=== PATIENT | female | born 1975 | race Caucasian/White ===

== ENCOUNTER 2017-04-11 14:30 | Emergency (ER) | payer OTHER ==
--- NOTE | ~2017-04-11 | US84 ---
[id number] [address] [address] [id number] MR#: [id number] Acc #: [id number] NAME: GENE CHIRINOS : 1975 SEX: F STUDY DATE/TIME: 04/11/2017 15:47 UNIT: SED ROOM: STUDY DESCRIPTION: US LE Veins Complete Cristobal Stdy Attending Physician: Tj Villanueva M.D. Ordering Physician: Tj Villanueva M.D. Primary Care Physician: Primary Care Physician No MEDICAL IMAGING REPORT This report is preliminary unless electronic signature is present. EXAM Bilateral lower extremity Doppler venous ultrasound. DATE: 04/11/2017 HISTORY Bilateral lower extremity swelling for 3 months, sharp pain in the back of the calves for 1-2 weeks. TECHNIQUE Venous ultrasound examination of both lower extremities was performed using grayscale, spectral Doppler and color flow Doppler imaging. FINDINGS The examination is negative. There is no evidence of deep venous thrombus from the groin to the lower calf bilaterally. Visualized greater saphenous veins are also patent. IMPRESSION Negative examination. No evidence of lower extremity DVT. Dictated by... Alejandra Hernandez M.D. THIS IS AN ELECTRONICALLY VERIFIED REPORT Alejandra Hernandez M.D. at 04/14/2017 8:52 AM HOA/lizette TD: 04/12/2017 05:10 JOB #: [id number] MEDICAL IMAGING REPORT Page 1 of 1
[2017-04-11] MEDS ORDERED: NO MEDICATIONS (14:35)
[2017-04-11 16:10] LABS: BASOPHIL# 0.1 X10e3 (0-0.3); BASOPHIL% 1.1 % (0-2.5); EOSINOPHIL# 0.1 X10e3 (0-0.7); HEMATOCRIT 43.4 % (35.0-45.0); HEMOGLOBIN 14.3 gm/dL (12.0-16.0); MEAN CELL VOLUME 85.5 FL (83-96); MEAN CORPUSCULAR HEMOGLOBIN 28.1 PG (28-34); MEAN CORPUSCULAR HGB CONC 32.9 g/dL (30-36); MEAN PLATELET VOLUME 6.8 FL (6.5-11.5); MONOCYTE# 0.5 X10e3 (0-1.0); MONOCYTE% 7.5 % (3.0-12.0); NEUTROPHIL# 4.4 X10e3 (1.5-7.1); NEUTROPHIL% 62.4 % (40-75); PLATELET COUNT 280 X10e3 (140-420); RED BLOOD COUNT 5.07 X10e (3.90-5.30); RED CELL DISTRIBUTION WIDTH 13.5 % (11.0-15.5); WHITE BLOOD COUNT 7.1 X10e3 (4.0-10.5)
[2017-04-11 16:18] LABS: DIFF IND NO
[2017-04-11 16:29] LABS: BUN/CREATININE RATIO 13.75; CALCIUM SERUM 8.9 mg/dL (8.4-10.2); CREATININE SERUM 0.8 mg/dL (0.6-1.4); GLOM FILT RATE Estimated 90.4 mL/min (>60); POTASSIUM 3.5 mmol/L (3.5-5.1)
== END 2017-04-11 16:43 | disposition home or self-care (01) ==
LOC: SED 14:30
PROVIDERS: Emergency Medicine
DX: R60.0 Localized edema (principal)
CPT/HCPCS: 36415; 80048; 85025; 93970; 99284